=== PATIENT | female | born 1990 | race Caucasian/White ===

== ENCOUNTER → 2021-10-07 | Outpatient (CLI) | payer OTHER | LOC: LAB 13:46 | PROVIDERS: ATTEND Internal Medicine Pulmonary Disease | DX: R51.9 Headache, unspecified (principal); J02.9 Acute pharyngitis, unspecified; R09.81 Nasal congestion; R53.81 Other malaise; R43.0 Anosmia; Z20.822 Contact with and (suspected) exposure to COVID-19 | CPT/HCPCS: U0003; U0005 ==

== ENCOUNTER → 2022-01-22 | Outpatient (CLI) | payer OTHER ==
[2022-01-22 13:11] LABS: BASO # 0.1 x10^3/uL (0.0-0.2); BASO % 1 % (0-3); EOS # 0.4 x10^3/uL (0.0-0.7); EOS % 5 % (0-3); HEMATOCRIT 45.7 % (36.0-47.0); HEMOGLOBIN 15.4 g/dL (12.0-15.5); LYMPH # 2.2 x10^3/uL (1.0-4.8); LYMPH % 27 % (24-48); MEAN CORPUSCULAR HEMOGLOBIN 29 pg (25-35); MEAN CORPUSCULAR HGB CONC 34 g/dL (31-37); MEAN CORPUSCULAR VOLUME 85 fL (79-100); MONO # 0.4 x10^3/uL (0.0-1.1); MONO % 5 % (0-9); NEUT # 5.2 x10^3/uL (1.8-7.7); NEUT % 63 % (31-73); PLATELET COUNT 315 x10^3/uL (140-400); RED BLOOD COUNT 5.38 x10^6/uL (3.50-5.40); RED CELL DISTRIBUTION WIDTH 13.8 % (11.5-14.5); WHITE BLOOD COUNT 8.2 x10^3/uL (4.0-11.0)
[2022-01-22 13:30] LABS: ALBUMIN 4.2 g/dL (3.4-5.0); ALBUMIN/GLOBULIN RATIO 1.1 (1.0-1.7); CALCIUM 9.6 mg/dL (8.5-10.1); CREATININE 0.8 mg/dL (0.6-1.0); GFR 84.2; POTASSIUM 3.8 mmol/L (3.5-5.1); TOTAL BILIRUBIN 0.7 mg/dL (0.2-1.0); TOTAL PROTEIN 8.2 g/dL (6.4-8.2)
[2022-01-22 13:41] LABS: FREE T4 0.76 ng/dL (0.76-1.46); THYROID STIM HORMONE (TSH) 34.797 uIU/mL (0.358-3.74)
[2022-01-23 01:09] LABS: HEMOGLOBIN A1C 5.5 % (4.8-5.6)
== END ==
LOC: LAB 12:25
PROVIDERS: ATTEND Family Medicine
DX: E74.39 Other disorders of intestinal carbohydrate absorption (principal); E03.9 Hypothyroidism, unspecified
CPT/HCPCS: 36415; 80053; 83036; 84439; 84443; 85025

== ENCOUNTER 2022-02-24 10:13 | Emergency (ER) | payer OTHER ==
[~2022-02-24] VITALS: Ht 162.6 cm; Wt 136.4 kg
[2022-02-24 10:53] VITALS: BP 141/97
[2022-02-24] MEDS ORDERED: KETOROLAC 60 MG/2 ML VIAL. IM ONE (11:15)
[2022-02-24] MEDS ORDERED: ORPHENADRINE CITRATE 60 MG/2 ML VIAL. IM ONE (11:15)
--- NOTE | 2022-02-24 14:23 | RAD ---
EXAMINATION: CT LUMBAR SPINE WO. Technique: Axial images with coronal and sagittal reconstructions are performed of lumbar spine witho ut contrast. One or more of the following radiation dose reduction techniques was used: automated exposure control , adjustment of mA and/or KV according to patient size, and/or utilization of iterative reconstructio n technique. HISTORY: 31 years Female Reason: low back pain with right leg pain COMPARISON: None. FINDINGS: The alignment of the lumbar spine is satisfactory. The vertebral body heights are preserved. Disc hei ghts are also preserved. There is no pars defect or fracture from seen. The SI joints demonstrate minimal spur formation seen anteriorly and vacuum phenomenon suggestive of minimal degenerative changes. No fracture is seen. There is no focal suspicious bone lesion identified. The soft tissues suggest the a disc herniation at the L4/5 level which does not appear to result in h igh-grade spinal canal stenosis is based on CT scan. MRI can better evaluate if needed. The neural foramina appear patent. IMPRESSION: Suggestion of disc herniation at L4/[address] evidence of high-grade spinal canal stenosis or ne ural foraminal stenosis. If symptoms persist or worsen, consider MRI evaluation. Electronically signed by: Sarmad Goodson MD (02/24/2022 2:20 PM) [id number]
[2022-02-24] MEDS ORDERED: METH4TAB2 PO (14:47)
[2022-02-24] MEDS ORDERED: CYCL10TA19 PO (14:47)
[2022-02-24] MEDS ORDERED: HYDR-2761 PO (14:47)
[2022-02-24] MEDS ORDERED: IBUP-1007 PO (14:47)
--- NOTE | 2022-02-24 14:47 | PHYS DOC ---
Past Medical History Additional Past Medical Histor: INSOMNIA (TODD HERNANDEZ APRN) Past Surgical History: Other Additional Past Surgical Histo: REVERSED TUBAL LIGATION 2019, RIGHT HAND CARPAL TUNNEL (TODD HERNANDEZ APRN) Smoking Status: Never Smoker Alcohol Use: None Drug Use: None (COSTA MOURA DO) General Adult EDM: Chief Complaint: BACK PAIN - NO INJURY HPI: HPI: Patient is a 31-year-old female who presents today with back pain. She states over the last 5 days she has had increasing worsening of her back pain, with radiation down to her left leg. Patient denies any injury, she said that a couple of years ago she had the same issue and it went away spontaneously. Patient denies any bowel or bladder issues such as incontinence or inability to void or defecate. (TODD HERNANDEZ APRN) Review of Systems: Review of Systems: Constitutional: Denies fever or chills. [] Eyes: Denies change in visual acuity. [] HENT: Denies nasal congestion or sore throat. [] Respiratory: Denies cough or shortness of breath. [] Cardiovascular: Denies chest pain or edema. [] GI: Denies abdominal pain, nausea, vomiting, bloody stools or diarrhea. [] : Denies dysuria. [] Musculoskeletal: Back pain Integument: Denies rash. [] Neurologic: Denies headache, focal weakness or sensory changes. [] Endocrine: Denies polyuria or polydipsia. [] Lymphatic: Denies swollen glands. [] Psychiatric: Denies depression or anxiety. [] (TODD HERNANDEZ DEMURRAGE WORKER) Heart Score: C/O Chest Pain: No Risk Factors: Risk Factors: DM, Current or recent (<one month) smoker, HTN, HLP, family history of CAD, obesity. Risk Scores: Score 0 - 3: 2.5% MACE over next 6 weeks - Discharge Home Score 4 - 6: 20.3% MACE over next 6 weeks - Admit for Clinical Observation Score 7 - 10: 72.7% MACE over next 6 weeks - Early Invasive Strategies (TODD HERNANDEZ APRN) Current Medications: Current Medications Medications (Trade) Dose Ordered Sig/Komal Start Time Stop Time Status Last Admin Dose Admin Ketorolac Tromethamine (Toradol Im) 60 mg 1X ONCE 5/10/22 11:15 02/24/22 11:18 DC 02/24/22 11:34 60 MG Orphenadrine Citrate (Norflex) 60 mg 1X ONCE 02/24/22 11:15 02/24/22 11:18 DC 02/24/22 11:35 60 MG (TODD HERNANDEZ APRN) Allergies: Allergies: Allergies Coded Allergies Type Severity Reaction Last Updated Verified No Known Drug Allergies 02/24/22 No (TODD HERNANDEZ APRN) Physical Exam: PE: Constitutional: Well developed, well nourished, no acute distress, non-toxic appearance. [] HENT: Normocephalic, atraumatic, bilateral external ears normal, oropharynx moist, no oral exudates, nose normal. [] Eyes: PERRLA, EOMI, conjunctiva normal, no discharge. [] Neck: Normal range of motion, no tenderness, supple, no stridor. [] Cardiovascular:Heart rate regular rhythm, no murmur [] Lungs & Thorax: Bilateral breath sounds clear to auscultation [] Abdomen: Bowel sounds normal, soft, no tenderness, no masses, no pulsatile masses. [] Skin: Warm, dry, no erythema, no rash. [] Back: Tenderness with palpation to the left SI area, patient has good sensation distal to the pain patient is able to ambulate with no foot drag noted, cap refill distal to the injury is less than 2 seconds and dorsalis pedis pulse is 2+ and sensory is intact Extremities: No tenderness, no cyanosis, no clubbing, ROM intact, no edema. [] Neurologic: Alert and oriented X 3, normal motor function, normal sensory function, no focal deficits noted. [] Psychologic: Affect normal, judgement normal, mood normal. [] (TODD HERNANDEZ APRN) Current Patient Data: Labs: Laboratory Tests Test 02/24/22 13:33 POC Urine HCG, Qualitative Hcg negative (Negative) Vital Signs: Vital Signs Date Time Temp Pulse Resp B/P (MAP) Pulse Ox O2 Delivery O2 Flow Rate FiO2 02/24/22 10:53 98.5 90 20 141/97 (112) 96 Room Air 98.5 (TODD HERNANDEZ DEMURRAGE WORKER) EKG: EKG: [] (TODD HERNANDEZ DEMURRAGE WORKER) Radiology/Procedures: Radiology/Procedures: REASON: low back pain with right leg pain PROCEDURE: CT LUMBAR SPINE WO CONTRAST EXAMINATION: CT LUMBAR SPINE WO. Technique: Axial images with coronal and sagittal reconstructions are performed of lumbar spine without contrast. One or more of the following radiation dose reduction techniques was used: automated exposure control, adjustment of mA and/or KV according to patient size, and/or utilization of iterative reconstruction technique. HISTORY: 31 years Female Reason: low back pain with right leg pain COMPARISON: None. FINDINGS: The alignment of the lumbar spine is satisfactory. The vertebral body heights are preserved. Disc heights are also preserved. There is no pars defect or fracture from seen. The SI joints demonstrate minimal spur formation seen anteriorly and vacuum phenomenon suggestive of minimal degenerative changes. No fracture is seen. There is no focal suspicious bone lesion identified. The soft tissues suggest the a disc herniation at the L4/5 level which does not appear to result in high-grade spinal canal stenosis is based on CT scan. MRI can better evaluate if needed. The neural foramina appear patent. IMPRESSION: Suggestion of disc herniation at L4/[address] evidence of high-grade spinal canal stenosis or neural foraminal stenosis. If symptoms persist or worsen, consider MRI evaluation. Electronically signed by: Sarmad Goodson MD (02/24/2022 2:20 PM) [id number] [] (TODD HERNANDEZ DEMURRAGE WORKER) Course & Med Decision Making: Course & Med Decision Making Pertinent Labs and Imaging studies reviewed. (See chart for details) 1415 I conferred with Amisha GODINEZ with neurosurgery group regarding the patient's CT findings, she recommended that the placement follow-up in the clinic for further evaluation and management of this issue. I did speak to patient in regards to her CT report and did inform her that due to her insurance she will have to go through her primary care physician Dr. Prajapati for further evaluation and management and a referral to the neurosurgeon. Patient will be placed on a steroid Dosepak, along with hydrocodone and Flexeril and Motrin. Patient is instructed to make sure she is sitting and proper alignment and sleeping with a pillow in between her legs to keep her back in alignment as well. Patient verbalizes understanding is agreeable with the plan of care. I did give her strict return precautions as well. (TODD HERNANDEZ APRN) Dragon Disclaimer: Dragon Disclaimer: This electronic medical record was generated, in whole or in part, using a voice recognition dictation system. (TODD HERNANDEZ APRN) Departure Departure Impression: Primary Impression: Herniated disc Qualified Codes: M51.26 - Other intervertebral disc displacement, lumbar region Disposition: HOME / SELF CARE / HOMELESS Condition: STABLE Referrals: LONDON GARCÍA MD (PCP) WILLIAM PIEDRA MD Patient Instructions: Herniated Disk Additional Instructions: Medrol Dosepak as directed Flexeril 10 mg take half a tablet to 1 tablet every 8 hours as needed for muscle spasms, use with caution may cause drowsiness Motrin 600 mg take 1 tablet every 6 hours for the next 5 days then take as needed, take with food may cause stomach upset if taken on an empty stomach Hydrocodone take 1 to 2 tablets every 6 hours as needed for severe pain, use with caution may cause drowsiness and constipation Follow-up with your primary care physician as soon as possible for further evaluation and management of this back issue. Return to the emergency department should you have any issues with loss of bowel or bladder control or the inability to void or defecate. Scripts Hydrocodone Bit/Acetaminophen (HYDROCODONE-APAP 5-325 ) 1 Tab Tablet 2 TAB PO PRN Q6HRS PRN for PAIN, #30 TAB 0 Refills Prov: TODD HERNANDEZ APRN 02/24/22 Methylprednisolone (MEDROL) 4 Mg Tab.ds.pk 1 PKG PO UD, #1 PKG Prov: TODD HERNANDEZ [employer]URRAGE WORKER 02/24/22 Cyclobenzaprine Hcl (CYCLOBENZAPRINE HCL) 10 Mg Tablet 10 MG PO TID PRN PRN for MUSCLE SPASMS, #30 TAB Prov: TODD HERNANDEZ 02/24/22 Ibuprofen (IBUPROFEN) 600 Mg Tablet 600 MG PO PRN Q6HRS PRN for INFLAMMATION, #60 TAB Prov: TODD HERNANDEZ 02/24/22 Attending Signature Attending Signature I have reviewed the PA/[employer]OW REPAIRER's note and plan of care. I was available for consultation as needed during the patient's visit in the emergency department. I agree with the clinical impression, plan, and disposition. (COSTA MOURA DO) TODD HERNANDEZ APRN February 24, 2022 14:47 COSTA MOURA DO March 02, 2022 16:24
== END 2022-02-24 15:07 | disposition home or self-care (01) ==
LOC: ER 10:13
DX: M54.50 Low back pain, unspecified (principal)
CPT/HCPCS: 72131; 81025; 96372; 99284; J1885; J2360

== ENCOUNTER → 2022-03-04 | Outpatient (CLI) | payer OTHER ==
[2022-02-24 10:53] VITALS: BP 141/97
[~2022-03-04] MED LIST: CYCL10TA19 PO; HYDR-2761 PO; IBUP-1007 PO; METH4TAB2 PO
--- NOTE | 2022-03-04 15:59 | KCIC ---
EXAM: Lumbar spine MRI without contrast. HISTORY: Disc herniation. TECHNIQUE: Multiplanar, multisequence magnetic resonance imaging of the lumbar spine was performed wi thout contrast. COMPARISON: CT dated 02/24/2022. FINDINGS: There is minimal retrolisthesis of L4 on L5. There is a disc bulge and disc desiccation at this level. There is no suspicious osseous lesion. There is no acute or subacute fracture. There is p artial visual lesion of multiple physiologic ovarian follicles. The conus terminates at L1. At L1-L2 and L2-L3 and L3-L4, there is no stenosis. At L4-L5, there is a shallow broad-based left paracentral to foraminal disc protrusion superimposed o n a disc bulge and endplate remodeling. There is mild bilateral facet arthropathy. There is slight re trolisthesis. There is mild left foraminal stenosis with abutment of the exiting left L4 nerve root. There is narrowing of the left lateral recess and abutment of the traversing left L5 nerve roots. At L5-S1, there is a left lateral recess to foraminal disc protrusion. There is mild bilateral facet arthropathy. There is mild left foraminal stenosis with abutment of the exiting left L5 nerve root. T here is narrowing of the left lateral recess. IMPRESSION: 1. L4-L5: Shallow broad-based left paracentral to foraminal disc protrusion superimposed on a disc bu lge and additional degenerative change, resulting in mild left foraminal stenosis with abutment the e xiting left L4 nerve root and narrowing of the left lateral recess with abutment the traversing left L5 nerve roots. 2. L5-S1: Left lateral recess to foraminal disc protrusion, resulting in mild left foraminal stenosis with abutment of the exiting left L5 nerve root and narrowing of the left lateral recess. Electronically signed by: Cristiane Robertson MD (03/04/2022 10:12 AM) [facility]
== END ==
LOC: KCIC MRI 07:54
PROVIDERS: ATTEND Family Medicine
DX: M51.27 Other intervertebral disc displacement, lumbosacral region (principal); M47.816 Spondylosis without myelopathy or radiculopathy, lumbar region; M48.07 Spinal stenosis, lumbosacral region
CPT/HCPCS: 72148